=== PATIENT | female | born 1965 | race Two or more races ===

== ENCOUNTER 2020-09-08 05:40 | Day surgery (SDC) | payer OTHER ==
[~2020-09-08 05:40] MED LIST: ATORVASTATIN CA10 MG PO; CLONAZEPAM0.5 MG PO; DEPAKOTE ER500 MG PO; HUMULIN 70100 UNIT/2 SUBCUTANEO; PAXIL20 MG PO; PLETAL PO; RESTORIL30 M1 PO
== END 2020-09-08 11:30 | disposition home or self-care (01) ==
LOC: CIR.AMB 05:40
PROVIDERS: ATTEND Colon & Rectal Surgery
DX: R15.9 Full incontinence of feces (principal); Z20.822 Contact with and (suspected) exposure to COVID-19
CPT/HCPCS: 64590; 64581; 95972; C1778; L8679